=== PATIENT | male | born 1965 | race Caucasian/White ===

== ENCOUNTER 2018-06-15 12:37 | Day surgery (SDC) | payer BC ==
[2018-06-15] MEDS ORDERED: LIDOCAINE 2% (SDV) 5 ML INJ (14:26)
[2018-06-15] MEDS ORDERED: PROPOFOL 60 ML (14:26)
[2018-06-15] MEDS ORDERED: LABETALOL HCL 20MG INJ IV (14:30)
[2018-06-15] MEDS ORDERED: ALBUTEROL 0.083% (NEB) 2.5 MG/3 ML AMP HHN (14:30)
[2018-06-15] MEDS ORDERED: ONDANSETRON 4 MG INJ IV (14:30)
[2018-06-15] MEDS ORDERED: PROPOFOL 200 MG INJ (14:30)
[2018-06-15] MEDS ORDERED: hydrALAzine 20 MG INJ IV (14:30)
[2018-06-15] MEDS ORDERED: FENTAnyl 50 MCG/ML VIAL IV (14:30)
[2018-06-15] MEDS ORDERED: EPHEDrine SULFATE 50 MG/5 ML SYG IV (14:30)
== END 2018-06-15 15:37 | disposition home or self-care (01) ==
LOC: GIL 12:37
DX: Z12.11 Encounter for screening for malignant neoplasm of colon (principal); D12.5 Benign neoplasm of sigmoid colon; K64.8 Other hemorrhoids; D12.3 Benign neoplasm of transverse colon
CPT/HCPCS: 45380; 88305